=== PATIENT | male | born 1965 | race Caucasian/White ===

== ENCOUNTER 2022-01-31 13:34 | Outpatient (CLI) | END 2022-01-31 13:35 | disposition home or self-care (01) | LOC: CSHWCC 13:34 | PROVIDERS: ATTEND Nurse Practitioner Family | DX: T81.89XD Other complications of procedures, not elsewhere classified, subsequent encounter (principal); R60.0 Localized edema | CPT/HCPCS: 97605 ==

== ENCOUNTER 2022-02-16 10:43 | Outpatient (CLI) | payer OTHER | END 2022-02-16 10:44 | disposition home or self-care (01) | LOC: CSHWCC 10:43 | PROVIDERS: ATTEND Nurse Practitioner Family | DX: T81.89XD Other complications of procedures, not elsewhere classified, subsequent encounter (principal); R60.0 Localized edema ==

== ENCOUNTER 2022-02-20 15:05 | Outpatient (CLI) | payer OTHER | END 2022-02-20 15:06 | disposition home or self-care (01) | LOC: CSHWCC 15:05 | PROVIDERS: ATTEND Nurse Practitioner Family | DX: T81.89XD Other complications of procedures, not elsewhere classified, subsequent encounter (principal); R60.0 Localized edema ==

== ENCOUNTER 2022-02-27 14:20 | Outpatient (CLI) | payer OTHER | END 2022-02-27 14:21 | disposition home or self-care (01) | LOC: CSHWCC 14:20 | PROVIDERS: ATTEND Nurse Practitioner Family | DX: T81.89XD Other complications of procedures, not elsewhere classified, subsequent encounter (principal); R60.0 Localized edema ==